=== PATIENT | male | born 1965 | race Caucasian/White ===

== ENCOUNTER → 2017-10-30 | Outpatient (CLI) | payer BC | LOC: LAB SHORT 07:54 → PLD 07:54 | DX: L00-L99 Diseases of the skin and subcutaneous tissue (principal) | CPT/HCPCS: 88305 ==

== ENCOUNTER → 2017-11-13 | Outpatient (CLI) | payer BC | LOC: LAB 11:15 → LAB SHORT 11:15 | DX: R30.0 Dysuria (principal) | CPT/HCPCS: 87077; 87086; 87186 ==